=== PATIENT | male | born 1950 | race Caucasian/White ===

== ENCOUNTER → 2017-02-26 | Outpatient (CLI) | payer MEDICARE ==
[~2017-02-26] MED LIST: AMBIEN10 MG PO; ASPIRIN CHEWABL81 MG PO; CELEBREX 200MG200 MG PO; DILTIAZEM 24HR180 M1 PO; DULOXETINE HCL20 MG PO; ELIQUIS2.5 MG PO; ISOSORBIDE MONO30 MG PO; LEVAQUIN500 MG PO; LORTAB 7.5-3251 EACH PO; METOPROLOL TART25 MG PO; NEURONTIN 100100 MG PO; NORCO 7.5-3251 EACH PO; NORVASC 5 MG TAB5 MG PO; SINEMET 25/100 T1 EA PO; SYNTHROID25 MCG PO; TIZANIDINE HCL4 MG PO; ZOLPIDEM TARTRA10 MG PO
[2017-02-26 13:38] LABS: HEMOGLOBIN 15.3 gm/dl (14.0-17.5); RED BLOOD COUNT 5.03 M/UL (4.20-5.50); WHITE BLOOD COUNT 6.4 K/UL (4.5-11.0)
[2017-02-26 13:57] LABS: BUN/CREATININE RATIO 15 (0-10)
== END ==
LOC: OPSV2 09:30
PROVIDERS: Orthopaedic Surgery
DX: Z01.810 Encounter for preprocedural cardiovascular examination (principal); Z01.812 Encounter for preprocedural laboratory examination; Z01.818 Encounter for other preprocedural examination; M17.11 Unilateral primary osteoarthritis, right knee
CPT/HCPCS: 36415; 71020; 80048; 81001; 85025; 87081; 93005

== ENCOUNTER → 2017-03-11 | Outpatient (CLI) | payer MEDICARE | LOC: LAB 12:42 | DX: Z01.812 Encounter for preprocedural laboratory examination (principal); M19.90 Unspecified osteoarthritis, unspecified site | CPT/HCPCS: 36415; 80051; 82565; 84520; 86850; 86900; 86901 ==

== ENCOUNTER 2017-03-12 09:30 | Inpatient (IN) | payer MEDICARE ==
[~2017-03-12] VITALS: Ht 175.3 cm; Wt 118.4 kg
[~2017-03-12 09:30] MED LIST changes: -ELIQUIS2.5 MG PO; -NORCO 7.5-3251 EACH PO
[2017-03-13 04:59] LABS: HEMOGLOBIN 11.6 gm/dl (14.0-17.5); RED BLOOD COUNT 3.85 M/UL (4.20-5.50); WHITE BLOOD COUNT 7.8 K/UL (4.5-11.0)
[2017-03-13 05:20] LABS: BUN/CREATININE RATIO 18 (0-10)
[2017-03-14 05:53] LABS: HEMOGLOBIN 10.6 gm/dl (14.0-17.5); RED BLOOD COUNT 3.53 M/UL (4.20-5.50); WHITE BLOOD COUNT 5.2 K/UL (4.5-11.0)
[2017-03-14 06:11] LABS: BUN/CREATININE RATIO 17 (0-10)
[2017-03-15 05:48] LABS: HEMOGLOBIN 9.9 gm/dl (14.0-17.5); RED BLOOD COUNT 3.28 M/UL (4.20-5.50); WHITE BLOOD COUNT 5.4 K/UL (4.5-11.0)
[2017-03-15 06:05] LABS: BUN/CREATININE RATIO 12 (0-10)
[2017-03-15] MEDS ORDERED: ELIQUIS2.5 MG PO (11:13)
[2017-03-15] MEDS ORDERED: NORCO 7.5-3251 EACH PO (11:14)
--- NOTE | 2017-03-15 11:49 | NUR ---
1100: CALLED [facility] TO PAGE NURSE VINYL TOP INSTALLER TO GIVE REPORT. 1135: CALLED [facility] AGAIN, NO ONE RETURNED CALL TO RECEIVE REPORT. BACKEND PYTHON DEVELOPER STATED THAT NURSE WOULD RETURN CALL SOON POSSIBLE, SEEING PATIENTS AT THIS TIME.
== END 2017-03-15 13:00 | disposition home health service (06) | DRG 470 ==
LOC: EDSTATUS 09:30 → OR 09:30 → ZOBSOF 09:51 → M/S 09:51 → OR 12:00 → M/S 13:00
PROVIDERS: ADMIT Orthopaedic Surgery
PROC: 0QPG04Z Removal of Internal Fixation Device from Right Tibia, Open Approach (ICD-10-PCS; principal; 2017-03-12 13:00)
PROC: 0SRC0J9 Replacement of Right Knee Joint with Synthetic Substitute, Cemented, Open Approach (ICD-10-PCS; principal; 2017-03-12 13:00)
DX: M17.31 Unilateral post-traumatic osteoarthritis, right knee (principal); G89.28 Other chronic postprocedural pain; M79.672 Pain in left foot; R07.9 Chest pain, unspecified; I25.10 Atherosclerotic heart disease of native coronary artery without angina pectoris; E03.9 Hypothyroidism, unspecified; I10 Essential (primary) hypertension; F32.9 Major depressive disorder, single episode, unspecified; Z95.0 Presence of cardiac pacemaker; Z79.82 Long term (current) use of aspirin; Z79.899 Other long term (current) drug therapy; Z82.49 Family history of ischemic heart disease and other diseases of the circulatory system; Z87.81 Personal history of (healed) traumatic fracture; Z86.79 Personal history of other diseases of the circulatory system
CPT/HCPCS: 36415; 73560; 76000; 80048; 85025; 97110; 97116; 97530; 97535; C1713; C1776; J0171; J0690; J0735; J1885; J2250; J2274; J2795; J3010; J3370; J7050; J7120